=== PATIENT | female | born 1980 | race Caucasian/White ===

== ENCOUNTER 2021-12-06 11:45 | Emergency (ER) | payer BC ==
--- OUTSIDE RECORDS SUMMARY | 2021-12-06 11:49 | XMS REPORT | Continuity of Care Document ---
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 Attending Clinician Payers Payer Name Policy Type Policy Number Effective Date Expiration Date S ource Problems Condition Condition Condition Status Onset Resolution Last Treating Co mments Source Name Details Category Date Date Treatment Clinician Date Keratosis Keratosis Disease Active Uni vers pilaris pilaris 2-28 ity of 00:00: [address] Family Family Disease Active Univers history of history of 2-28 it y of melanoma melanoma 00:00: [address] Anemia Anemia Disease Active 2016-07 Univers 0-05 ity of 00:00: [address] Leukopenia Leukopenia Disease Active U nivers 03-31 ity of 00:00: [address] Microscopi Microscopi Disease Active U nivers c c 03-31 [place] [address] [place] [address] Low serum Low serum Disease Active Uni vers HDL HDL 03-31 ity of 00:00: [address] B12 B12 Disease Active Univers deficiency deficiency 03-31 it y of 00:00: [address] Essential Essential Disease Active Uni vers hypertensi hypertensi 03-30 it y of on on 00:00: [address] PMDD PMDD Disease Active Univers (premenstr (premenstr 03-30 it y of ual ual 00:00: [place] dysphoric dysphoric 00 Medi ara disorder) disorder) Bran ch Eustachian Eustachian Disease Active U nivers tube tube 9-22 ity of dysfunct[place] [facility] Allergies, Adverse Reactions, Alerts Allergy Allergy Status Severity Reaction(s) Onset Inactive Treating Comm ents Source Name Type Date Date Clinician Ciproflo Propensi Active Itching Unive rs xacin ty to 7-12 ity of adverse 00:00: [place] reaction 00 Medical s Branch CIPROFLO DRUG Active ITCHING Univers XACIN INGREDI 7-12 ity of 00:00: [place] 00 Medical Branch Sertrali Propensi Active Swelling 2015-07 Univ ers ne ty to 0-13 ity of adverse 00:00: [place] reaction 00 Medical s Branch SERTRALI DRUG Active Swelling 2015-07 Univer s NE INGREDI 0-13 ity of 00:00: [place] 00 Medical Branch Sulfa Propensi Active Unknown - Unive rs (Sulfona ty to See comments 3-01 it y of mide adverse 00:00: [place] Antibiot reaction 00 Medica l ics) s Branch Hydrocod Propensi Active Unknown - Uni vers one-Acet ty to See comments 3- it y of aminophe adverse 00:00: [place] n reaction 00 Medical s Branch SULFA Drug Active Unknown-Cmnt Univ ers (SULFONA Class 3-01 ity of MIDE 00:00: [place] ANTIBIOT 00 Medical ICS) Branch HYDROCOD DRUG Active Unknown-Cmnt Un dorothy ONE-ACET 3- ity of AMINOPHE 00:00: [place] N 00 Medical Branch Social History Social Habit Start Date Stop Date Quantity Comments Source Sex Assigned At [facility] Medical Branch Alcohol intake 2020-01-18 2020-01-18 [facility] 00:00:00 00:00:00 Medical Branch Alcohol Comment 2015-09-07 2015-09-07 occasional [facility] 00:00:00 00:00:00 Medical Branch Smoking Status Start Date Stop Date Source Never smoker [facility] [place] Medications Ordered Filled Start Stop Current Ordering Indication Dosage Frequency Signature Comments Components Source Medication Medication Date Date Medication? Clinician (SIG) Name Name Nitrofurant 2020- No [id number] 100mg Take 1 Univers oin&Nit. 7-12 07-18 capsule by ity of [place] 00:00: 04:59 mouth 2 Miko as (MACROBID) 00 :00 (two) Medical 100 mg times Branch capsule daily for 5 days. MONTELUKAST 2018- Yes [id number] TAKE 1 Univers 10 mg 0-04 TABLET BY ity of tablet 00:00: MOUTH AT [place] 00 BEDTIME Medical Branch LOSARTAN 25 2018-07 Yes [id number] 25mg TAKE 1 Univers mg tablet 0-04 TABLET BY ity o f 00:00: MOUTH [place] 00 DAILY Medical Branch MONTELUKAST 2018- Yes [id number] TAKE 1 Univers 10 mg 0-04 TABLET BY ity of tablet 00:00: MOUTH AT [place] 00 BEDTIME Medical Branch LOSARTAN 25 2018- Yes [id number] 25mg TAKE 1 Univers mg tablet 0-04 TABLET BY ity o f 00:00: MOUTH [place] 00 DAILY Medical Branch MONTELUKAST 2018- Yes [id number] TAKE 1 Univers 10 mg 0-04 TABLET BY ity of tablet 00:00: MOUTH AT [place] 00 BEDTIME Medical Branch LOSARTAN 25 2018-07 Yes [id number] 25mg TAKE 1 Univers mg tablet 0-04 TABLET BY ity o f 00:00: MOUTH [place] 00 DAILY Medical Branch FLUoxetine 2019-0 Yes [id number] 10mg Take 1 Uni vers 10 mg 9-30 capsule by ity of capsule 00:00: mouth [place] 00 daily. Medical Branch FLUoxetine 2019-0 Yes [id number] 10mg Take 1 Uni vers 10 mg 9-30 capsule by ity of capsule 00:00: mouth [place] 00 daily. Medical Branch FLUoxetine 2019-0 Yes [id number] 10mg Take 1 Uni vers 10 mg 9-30 capsule by ity of capsule 00:00: mouth [place] 00 daily. Medical Branch ammonium 2017-0 Yes [id number] Apply to U nivers lactate 12 2-21 area(s) 2 ity of % cream 00:00: (two) [place] 00 times Medical daily as Branch needed (dry skin). ammonium 2017-0 Yes [id number] Apply to U nivers lactate 12 2-21 area(s) 2 ity of % cream 00:00: (two) [place] 00 times Medical daily as Branch needed (dry skin). ammonium 2018-0 Yes [id number] Apply to U nivers lactate 12 2-21 area(s) 2 ity of % cream 00:00: (two) [place] 00 times Medical daily as Branch needed (dry skin). Immunizations Ordered Filled Immunization Date Status Comments Sourc e Immunization Name Name TD 2017-03-30 Completed University 00:00:00 [facility] TD 2017-03-30 Completed University 00:00:00 [facility] 2017-03-30 Completed University 00:00:00 [facility] Vital Signs Vital Name Observation Time Observation Value Comments Source Systolic blood 2020-01-18 19:41:00 138 mm[Hg] Univer [facility]ity [facility] Diastolic blood 2020-01-18 19:41:00 98 mm[Hg] Unive rsity [facility] Heart rate 2020-01-18 19:41:00 68 /min [facility] Body temperature 2020-01-18 19:41:00 36.83 [facility] Res[facility] rate 2020-01-18 19:41:00 20 /min [facility] Body height 2020-01-18 19:41:00 170.2 cm [facility] Body weight 2020-01-18 19:41:00 66.679 kg [facility] BMI 2020-01-18 19:41:00 23.02 kg/m2 [facility] Oxygen saturation in 2020-01-18 19:41:00 98 /min [facility] Arterial blood by [facility] Pulse oximetry Branch Procedures Procedure Date / Time Performed Performing Clinician Ahmet e POCT URINALYSIS 2020-01-18 00:00:00 Ava Ochoa [place] f [facility] Encounters Start End Encounter Admission Attending Care Care Encounter Source Date/Time Date/Time Type Type Clinicians Facility Department ID 2021-12-12 2021-12-12 Outpatient ASIA, [facility] [id number] Univers 09:00:00 09:00:00 OSMANI [id number] ity of [facility] 2020-01-18 2020-01-21 Laboratory Lab, [facility] [id number] Univers 14:40:00 08:35:29 Only Fam Pob I Health [id number] ity of [place] [id number] Miko as Professio [phone] Ga dical nal [address] [place] [facility] One 2020-01-18 2020-01-18 Urgent Pob1, Acute Care Clinic [facility] [id number] Univers 14:36:28 15:14:[address] [facility] [id number] [facility] [id number] Miko as Professio [phone] Ga dical nal 044 [facility] One 2020-01-18 2020-01-18 Outpatient R [facility] [id number] Univers 14:40:00 14:40:00 [id number] [facility] 2020-01-18 2020-01-18 Outpatient R [facility] [id number] Univers 14:40:00 14:40:00 [facility] 2020-01-18 2020-01-18 [id number] Univers 14:40:00 14:40:00 [facility] Results Test Description Test Time Test Comments Results Result Comments Source POCT URINALYSIS W SPECIFIC GRAVITY 2020-01-18 19:59:00 Test Item Value Reference Range Interpretation Comme nts POCT U SP GRAV (test code = 3255) 1.005 mg/dl 1.005-1.025 POCT PH U (test code = 3254) 5 mg/dl 5-8 POCT U LEUK EST (test code = 3263) + Negative - Negative POCT U NIT (test code = 3262) negative Negative - Negative POCT U PROT (test code = 3259) trace Negative - Negative POCT U GLU (test code = 3256) normal Negative - Negative POCT U KETONE (test code = 3258) negative Negative - Negative POCT U UROBILI (test code = 3260) normal 0.2-1 POCT U BILI (test code = 3261) negative Negative - Negative POCT U BLD (test code = 3257) Negative - Negative POCT U COLOR (test code = 3266) pale yellow POCT U APPEAR (test code = 3267) cloudy [facility]
--- NOTE | 2021-12-06 12:49 | EDPHYS ---
Physician Documentation [facility] Name: Rosette Potter Age: 41 yrs Sex: Female : 1980 Arrival Date: 12/06/2021 Time: 11:49 Bed 4 Private MD: ED Physician Eliot Santos HPI: 12/06 12:48 This 41 yrs old Female presents to ER via EMS with complaints of Syncope. ms3 12:48 The patient has experienced syncope, became unresponsive. Onset: The symptoms/episode ms3 began/occurred just prior to arrival. Duration: This was a single episode. Context: the episode(s) was witnessed, by EMS personnel, by family, son. Associated injury: The patient did not suffer any apparent associated injury. Associated signs and symptoms: The patient has no apparent associated signs or symptoms. Current symptoms: Currently, the patient is not experiencing any symptoms. 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 - Social history:: Smoking status: Patient denies any tobacco usage or history of. ROS: 12:48 Constitutional: Negative for fever, and chills. Neck: Negative for injury, pain, and ms3 swelling, Cardiovascular: Negative for chest pain, and palpitations. Respiratory: Negative for shortness of breath, cough, wheezing, and pleuritic chest pain, Back: Negative for injury and pain, MS/Extremity: Negative for injury and deformity, Skin: Negative for injury, rash, and discoloration. 12:48 Neuro: Positive for syncope. Exam: 12:48 Constitutional: This is a well developed, well nourished patient who is awake, alert, ms3 and in no acute distress. Head/Face: Normocephalic, atraumatic. Neck: Trachea midline, no cervical lymphadenopathy. Supple, full range of motion without nuchal rigidity, or vertebral point tenderness. No Meningismus. Chest/axilla: Normal chest wall appearance and motion. Nontender with no deformity. Cardiovascular: Regular rate and rhythm with a normal S1 and S2. No gallops, murmurs, or rubs. Normal PMI, no JVD. No pulse deficits. Respiratory: Lungs have equal breath sounds bilaterally, clear to auscultation and percussion. No rales, rhonchi or wheezes noted. No increased work of breathing, no retractions or nasal flaring. Abdomen/GI: Soft, non-tender, with normal bowel sounds. No distension or tympany. No guarding or rebound. No evidence of tenderness throughout. Skin: Warm, dry with normal turgor. Normal color with no rashes, no lesions, and no evidence of cellulitis. MS/ Extremity: Pulses equal, no cyanosis. Neurovascular intact. Full, normal range of motion. Neuro: Awake and alert, GCS 15, oriented to person, place, time, and situation. Cranial nerves II-XII grossly intact. Motor strength 5/5 in all extremities. Sensory grossly intact. Cerebellar exam normal. Normal gait. Psych: Awake, alert, with orientation to person, place and time. Behavior, mood, and affect are within normal limits. Vital Signs: 11:54 BP 146 / 87; Pulse 84; Resp 16; Temp 97.6(TE); Pulse Ox 98% on R/A; Weight 58.97 kg; kj1 Height 5 ft. 7 in. (170.18 cm); Pain 0/10; 11:54 Body Mass Index 20.36 (58.97 kg, 170.18 cm) kj1 MDM: 11:52 Patient medically screened. ms3 12:48 Differential Diagnosis: cardiac arrhythmia, seizure, vasovagal episode. Data reviewed: ms3 vital signs, nurses notes. Counseling: I had a detailed discussion with the patient and/or guardian regarding: the historical points, exam findings, and any diagnostic results supporting the discharge/admit diagnosis, the need for outpatient follow up, to return to the emergency department if symptoms worsen or persist or if there are any questions or concerns that arise at home. ED course: Discussed obtaining labs, x-ray, ekg with patient. Patient declines. Patient states she passed out after seeing her son pass out and the EMS crew taking him out. Discussed PE findings with patient. Patient to follow up with PMD in 2-3 days. Patient understands/ agrees with plan. All questions answered. Return precautions given to include worsening symptoms, or any other concerns. Patient is improved, in NAD, non-toxic appearing, ambulatory in ED, speaking full sentences.. 12/06 11:53 Order name: IV Saline Lock; Complete Time: 12:31 ms3 Administered Medications: No medications were administered Disposition Summary: 12/06/21 12:48 Discharge Ordered Location: Home ms3 Condition: Stable ms3 Diagnosis - syncope ms3 Followup: ms3 - With: Private Physician - When: 2 - 3 days - Reason: Re-evaluation by your physician Discharge Instructions: - Discharge Summary Sheet ms3 - Syncope ms3 - Syncope, [id number] ms3 Forms: - Medication Reconciliation Form ms3 - Thank You Letter ms3 - Antibiotic Education ms3 - Prescription Opioid Use ms3 Signatures: Dispatcher [employer] EDMS Shahida Cruz, RN RN iw Yana Mack RN RN ap3 Eliot Santos, DO ms3 Corrections: (The following items were deleted from the chart) 12:40 11:54 Chest Single View+RAD.RAD.BRZ ordered. EDMS EDMS 12:45 11:53 Cardiac monitoring ordered. ms3 ms3 12:45 11:53 EKG - Nurse/Tech ordered. ms3 ms3 12:45 11:53 Labs collected and sent ordered. ms3 ms3 12:45 11:53 Urine Test ordered. ms3 ms3 12:46 11:53 Oxygen Per Protocol ordered. ms3 ms3 12:46 11:53 O2 Sat Monitoring ordered. ms3 ms3
--- NOTE | 2021-12-06 12:49 | ER ---
Nurse's Notes [facility] Name: Rosette Potter Age: 41 yrs Sex: Female : 1980 Arrival Date: 12/06/2021 Time: 11:49 Bed 4 Private MD: Diagnosis: syncope Presentation: 12/06 11:50 Chief complaint: EMS states: suddenly passed out, eyes rolled to side BP was low 80/60 iw , lasted a few seconds, woke up diaphoretic , now A\T\OX3. Coronavirus screen: At this time, the client does not indicate any symptoms associated with coronavirus-19. Ebola Screen: Patient negative for fever greater than or equal to 101.5 degrees Fahrenheit, and additional compatible Ebola Virus Disease symptoms Patient denies exposure to infectious person. Patient denies travel to an Ebola-affected area in the 21 days before illness onset. No symptoms or risks identified at this time. Risk Assessment: Do you want to hurt yourself or someone else? Patient reports no desire to harm self or others. Onset of symptoms was December 06, 2021. 11:50 Method Of Arrival: EMS: [facility] iw 11:50 Acuity: PAIGE 3 iw 12:54 Initial Sepsis Screen: Does the patient meet any 2 criteria? No. Patient's initial ap3 sepsis screen is negative. Does the patient have a suspected source of infection? No. Patient's initial sepsis screen is negative. Triage Assessment: 12:47 General: Appears in no apparent distress. comfortable, Behavior is calm, cooperative, ap3 appropriate for age. Pain: Denies pain. 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 - Social history:: Smoking status: Patient denies any tobacco usage or history of. Screenin:47 Abuse screen: Denies threats or abuse. Nutritional screening: No deficits noted. ap3 Tuberculosis screening: No symptoms or risk factors identified. Fall Risk Fall in past 12 months (25 points). Secondary diagnosis (15 points) IV access (20 points). Ambulatory Aid- None/Bed Rest/Nurse Assist (0 pts). Gait- Normal/Bed Rest/Wheelchair (0 pts) Mental Status- Oriented to own ability (0 pts). Total Begum Fall Scale indicates High Risk Score (45 or more points). Fall prevention measures have been instituted. Side Rails Up X 2 Placed Close to Nursing Station Frequent Obs/Assessments Occuring As available patient and family educated on Fall Prevention Program and Strategies. Vital Signs: 11:54 BP 146 / 87; Pulse 84; Resp 16; Temp 97.6(TE); Pulse Ox 98% on R/A; Weight 58.97 kg; kj1 Height 5 ft. 7 in. (170.18 cm); Pain 0/10; 11:54 Body Mass Index 20.36 (58.97 kg, 170.18 cm) kj1 ED Course: 11:49 Patient arrived in ED. iw 11:52 Eliot Santos DO is Attending Physician. ms3 11:58 Triage completed. iw 12:53 Arm band placed on right wrist. ap3 12:53 Patient has correct armband on for positive identification. Bed in low position. Call ap3 light in reach. Adult w/ patient. Pulse ox on. NIBP on. Door closed. Noise minimized. 13:04 No provider procedures requiring assistance completed. IV discontinued, intact, ap3 bleeding controlled, No redness/swelling at site. Pressure dressing applied. Administered Medications: No medications were administered Medication: 12:54 VIS not applicable for this client. ap3 Outcome: 12:48 Discharge ordered by MD. ms3 13:04 Discharged to home ambulatory, with family. ap3 13:04 Condition: good 13:04 Discharge instructions given to patient, Instructed on discharge instructions, follow up and referral plans. Demonstrated understanding of instructions, follow-up care. 13:04 Patient left the ED. ap3 Signatures: Shahida Cruz, RN RN iw Yana Mack RN RN ap3 Natali Martin kj1 Eliot Santos DO DO ms3 Corrections: (The following items were deleted from the chart) 11:57 11:54 BP 146 / 87; Pulse 84bpm; Resp 16bpm; Pulse Ox 98% RA; 58.97 kg; Height 5 ft. 7 kj1 in.; BMI: 20.3; Pain 0/10; kj1
[2021-12-06 13:08] VITALS: BP 146/87; TEMP 97.6; O2SAT 98
== END 2021-12-06 13:04 | disposition home or self-care (01) ==
LOC: ER 11:45
DX: R55 Syncope and collapse (principal); Z88.5 Allergy status to narcotic agent
CPT/HCPCS: 99283

== ENCOUNTER 2024-02-09 15:16 | Emergency (ER) | payer MEDICARE ==
[2024-02-09] MEDS ORDERED: NA CHLORIDE 0.9% 1,000 ML ONE (15:51)
[2024-02-09] MEDS ORDERED: ONDANSETRON 4 MG/2 ML VIAL ONE (15:51)
--- NOTE | 2024-02-09 16:17 | RAD REPORT ---
EXAM DESCRIPTION: RAD - Chest Single View - 02/09/2024 4:00 pm CLINICAL HISTORY: COUGH Chest pain. COMPARISON: <Comparisons> FINDINGS: Portable technique limits examination quality. The lungs are grossly clear. The heart is normal in size. No displaced fractures. IMPRESSION: No acute intrathoracic process suspected.
[2024-02-09 16:22] LABS: Absolute Lymphocytes (CBC) 0.2 K/uL (0.7-4.9); Absolute Monocytes 0.2 K/uL (0.1-1.3); Absolute Neutrophil 2.9 K/uL (1.8-8.0); Basophils % 0.2 % (0-1.3); Hematocrit 30.5 % (36.0-45.0); Hemoglobin 10.3 g/dL (12.0-15.0); Lymphocytes % 7.2 % (15.3-44.8); MCH 26.1 pg (27.0-35.0); MCHC 33.8 g/dL (32.0-36.0); MCV 77.2 fL (80-100); MPV 8.7 fL (7.6-11.3); Neutrophils % 87.6 % (41.7-73.7); Nucleated Red Blood Cells % 0.2 % (0-0); Platelets 93 thou/uL (152-406); RBC Red Blood Cell Count 3.95 M/uL (3.86-4.86); Red Cell Distribution Width 15.6 % (12.1-15.2)
[2024-02-09 16:30] LABS: SARS-CoV-2 Antigen CONTROL BLUE LINE VIS/BG OK; SARS-CoV-2 Antigen Rapid Res Negative (Negative)
[2024-02-09 16:51] LABS: Specific Gravity < 1.005 (1.005-1.030); Sqamous Epithelial <5 /HPF (None Seen); Urine Bacteria <20 /HPF (<20); Urine Bilirubin NEGATIVE (Negative); Urine Blood Negative (Negative); Urine Clarity Turbid (Clear); Urine Color Colorless (Yellow); Urine Crystals Unidentified Few /HPF (None Seen); Urine Culture Reflex Order NOT NEEDED; Urine Glucose NEGATIVE (Negative); Urine Ketones NEGATIVE (Negative); Urine Microscopic Reflex YN ORDER UMIC; Urine Nitrite NEGATIVE (Negative); Urine Protein NEGATIVE (Negative); Urine RBC <5 /HPF (None Seen); Urine Urobilinogen Normal (Normal); Urine WBC <5 /HPF (<5); Urine pH 6.5 (5.0-7.0)
[2024-02-09 17:02] LABS: Band Neutrophils 13 % (0-1); Differential Total Cells Count 100; Lymphocytes 15 % (15-42); Monocytes 3 % (0-10); Nucleated Red Blood Cells 1 /100WBC; Segmented Neutrophils 69 % (40-80)
[2024-02-09 17:03] LABS: Blood Morphology Comment NOT SEEN (NOT SEEN); Platelet Estimate DECR
--- NOTE | 2024-02-09 17:04 | ER ---
Nurse's Notes [facility] Name: Rosette Potter Age: 43 yrs Sex: Female : 1980 Arrival Date: 02/09/2024 Time: 15:16 Bed 9 Private MD: Diagnosis: Fever, unspecified Presentation: 02/08 15:24 Chief complaint: Patient states: Fever, headaches for about a week, no appetite, aa5 concerned she is dehydrated. Had 800mg ibuprofen at 1:30pm. Coronavirus screen: Vaccine status: Patient reports being unvaccinated. Ebola Screen: Patient denies travel to an Ebola-affected area in the 21 days before illness onset. Initial Sepsis Screen: Does the patient meet any 2 criteria? HR > 90 bpm. No. Patient's initial sepsis screen is negative. Does the patient have a suspected source of infection? No. Patient's initial sepsis screen is negative. Risk Assessment: Do you want to hurt yourself or someone else? Patient reports no desire to harm self or others. Onset of symptoms was January 2024. 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 - Infectious Disease History:: Denies. - Social history:: Smoking status: Patient denies any tobacco usage or history of. Screenin:29 [facility] ED Fall Risk Assessment (Adult) History of falling in the last 3 months, kj2 including since admission No falls in past 3 months (0 pts) Confusion or Disorientation No (0 pts) Intoxicated or Sedated No (0 pts) Impaired Gait No (0 pts) Mobility Assist Device Used No (0 pt) Altered Elimination No (0 pt) Score/Fall Risk Level 0 - 2 = Low Risk Maintained a safe environment, Hourly rounding (assess needs \T\ fall precautionary measures) done. Abuse screen: Denies threats or abuse. Denies injuries from another. Nutritional screening: No deficits noted. Tuberculosis screening: No symptoms or risk factors identified. Assessment: 16:26 General: Appears in no apparent distress. Behavior is calm, cooperative. Pain: kj2 Complains of pain in headache Pain currently is 4 out of 10 on a pain scale. Neuro: Level of Consciousness is awake, alert, Oriented to person, place, time, situation. Cardiovascular: Patient's skin is warm and dry. Respiratory: Airway is patent Respiratory effort is even, unlabored. GI: No deficits noted. Vital Signs: 15:24 BP 137 / 84; Pulse 94; Resp 16; Temp 98.4; Pulse Ox 97% on R/A; Weight 61.23 kg; Height aa5 5 ft. 6 in. ; Pain 3/10; 16:23 BP 126 / 92; Pulse 81; Resp 18; Pulse Ox 98% on R/A; kj2 17:45 BP 110 / 79; Pulse 70; Resp 18; Temp 98; Pulse Ox 100% on R/A; kj2 15:24 Body Mass Index 21.79 (61.23 kg, 167.64 cm) aa5 15:24 Pain Scale: Adult aa5 ED Course: 15:18 Patient arrived in ED. im 15:23 [facility] 15:23 Luisito Mathews MD is Attending Physician. 7 15:27 Triage completed. aa5 15:27 Arm band placed on left wrist. aa5 15:45 Rena Nayak, NAYAN is Primary Nurse. kj2 16:02 XRAY Chest (1 view) In Process Unspecified. EDMS 16:25 Patient has correct armband on for positive identification. Bed in low position. Call kj2 light in reach. Adult w/ patient. Provided Education on: call light, fall precautions. 16:28 No provider procedures requiring assistance completed. Inserted saline lock: 20 gauge kj2 in left antecubital area, using aseptic technique. Blood collected. Flushed with 10 mL NS. 17:33 IV discontinued, intact, bleeding controlled, No redness/swelling at site. Pressure kj2 dressing applied. Administered Medications: 16:20 Drug: NS 0.9% IV 1000 ml IV at 1 bolus Per protocol; 1000 mL bolus Route: IV; Rate: 1 kj2 bolus; Site: left antecubital; 17:32 Follow up: IV Status: Completed infusion; IV Intake: 1000ml kj2 16:27 Drug: Ondansetron IVP 4 mg IVP once; over 2 minutes Route: IVP; Site: left antecubital; kj2 17:32 Follow up: Response: No adverse reaction kj2 17:39 Drug: Potassium Chloride PO 40 mEq PO once Route: PO; kj2 17:44 Follow up: Response: No adverse reaction kj2 Medication: 16:30 VIS not applicable for this client. kj2 Intake: 17:32 IV: 1000ml; Total: 1000ml. kj2 Outcome: 17:03 Discharge ordered by . jhAbdullahi 17:33 Discharged to home ambulatory, with family, kj2 17:33 Condition: stable 17:33 Discharge instructions given to patient, Instructed on discharge instructions, follow up and referral plans. Demonstrated understanding of instructions, follow-up care, 17:46 Patient left the ED. kj2 Signatures: Dispatcher [employer] Victorina Watkins, RN RN aa5 Sonja Larios, SENIOR MECHANICAL ENGINEER SENIOR MECHANICAL ENGINEER 7 Joelle Herrera Krystal RN RN kj2
--- NOTE | 2024-02-09 17:04 | EDPHYS ---
Physician Documentation [facility] Name: Rosette Potter Age: 43 yrs Sex: Female : 1980 Arrival Date: 02/09/2024 Time: 15:16 Bed 9 Private MD: ED Physician Luisito Mathews HPI: 02/08 15:24 This 43 yrs old Female presents to ER via Ambulatory with complaints of Flu Symptoms. [facility] 15:24 43-year-old female with a past medical history of tubal ligation presents to the ER for [facility] flulike symptoms x 1 week. The patient reports fever, headache, and decreased appetite for 1 week. She states that she started coughing yesterday. Denies any neck pain/stiffness, nausea, vomiting, or diarrhea.. 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 - Infectious Disease History:: Denies. - Social history:: Smoking status: Patient denies any tobacco usage or history of. ROS: 15:24 Constitutional: Per HPI 7 Exam: 15:24 Constitutional: This is a well developed, well nourished patient who is awake, alert, jh7 and in no acute distress. Head/Face: Normocephalic, atraumatic. Eyes: Pupils equal round and reactive to light, extra-ocular motions intact. Lids and lashes normal. Conjunctiva and sclera are non-icteric and not injected. Cornea within normal limits. Periorbital areas with no swelling, redness, or edema. Neck: Trachea midline, no thyromegaly or masses palpated, and no cervical lymphadenopathy. Supple, full range of motion without nuchal rigidity, or vertebral point tenderness. No Meningismus. Cardiovascular: Regular rate and rhythm with a normal S1 and S2. No gallops, murmurs, or rubs. Normal PMI, no JVD. No pulse deficits. Respiratory: Lungs have equal breath sounds bilaterally, clear to auscultation and percussion. No rales, rhonchi or wheezes noted. No increased work of breathing, no retractions or nasal flaring. Abdomen/GI: Soft, non-tender, with normal bowel sounds. No distension or tympany. No guarding or rebound. No evidence of tenderness throughout. Back: No spinal tenderness. No costovertebral tenderness. Full range of motion. Skin: Warm, dry with normal turgor. Normal color with no rashes, no lesions, and no evidence of cellulitis. MS/ Extremity: Pulses equal, no cyanosis. Neurovascular intact. Full, normal range of motion. Neuro: Awake and alert, GCS 15, oriented to person, place, time, and situation. Motor strength 5/5 in all extremities. Sensory grossly intact. Normal gait. 15:24 ENT: Posterior pharynx: pooling of secretions, that are mild, Vital Signs: 15:24 BP 137 / 84; Pulse 94; Resp 16; Temp 98.4; Pulse Ox 97% on R/A; Weight 61.23 kg; Height aa5 5 ft. 6 in. ; Pain 3/10; 16:23 BP 126 / 92; Pulse 81; Resp 18; Pulse Ox 98% on R/A; kj2 17:45 BP 110 / 79; Pulse 70; Resp 18; Temp 98; Pulse Ox 100% on R/A; kj2 15:24 Body Mass Index 21.79 (61.23 kg, 167.64 cm) aa5 15:24 Pain Scale: Adult aa5 MDM: 15:23 Patient medically screened. [facility] 17:10 Differential diagnosis: viral Infection, bacterial infection, URI, bronchitis, [facility] pneumonia URI, COVID, influenza. Data reviewed: vital signs, nurses notes, lab test result(s), radiologic studies, plain films. I considered the following discharge prescriptions or medication management in the emergency department Medications were administered in the Emergency Department. See MAR. Independent interpretation of the following test(s) in the Emergency Department X-Ray: My interpretation is No acute findings. Counseling: I had a detailed discussion with the patient and/or guardian regarding the historical points, exam findings, and any diagnostic results supporting the discharge/admit diagnosis, to return to the emergency department if symptoms worsen or persist or if there are any questions or concerns that arise at home. Response to treatment: the patient's symptoms have mildly improved after treatment. ED course: The patient remained hemodynamically stable throughout her ER stay. Informed her that there were no acute findings on her labs or imaging. The patient denied any headache, photophobia, nuchal rigidity, nausea/vomiting, or any other symptoms. The fever is likely viral and the patient was advised to take Tylenol/ibuprofen as needed for symptom relief. If she develops any new concerning symptoms, she was advised to return to the ER for further eval.. 02/08 15:33 Order name: BMP; Complete Time: 16:54 [facility] 02/08 15:33 Order name: CBC with Diff; Complete Time: 17:04 [facility] 02/08 15:33 Order name: Flu; Complete Time: 16:54 [facility] 02/08 15:33 Order name: SARS RAPID; Complete Time: 16:54 [facility] 02/08 15:33 Order name: Urinalysis w/ reflexes; Complete Time: 16:54 [facility] 02/08 16:59 Order name: Manual Differential; Complete Time: 17:04 EDMS 02/08 15:38 Order name: XRAY Chest (1 view); Complete Time: 16:20 jh7 Administered Medications: 16:20 Drug: NS 0.9% IV 1000 ml IV at 1 bolus Per protocol; 1000 mL bolus Route: IV; Rate: 1 kj2 bolus; Site: left antecubital; 17:32 Follow up: IV Status: Completed infusion; IV Intake: 1000ml kj2 16:27 Drug: Ondansetron IVP 4 mg IVP once; over 2 minutes Route: IVP; Site: left antecubital; kj2 17:32 Follow up: Response: No adverse reaction kj2 17:39 Drug: Potassium Chloride PO 40 mEq PO once Route: PO; kj2 17:44 Follow up: Response: No adverse reaction kj2 Disposition: 20:08 Co-signature as Attending Physician, Luisito Mathews MD I reviewed the patient's care rt provided by the Advanced Practice Provider and agree with the diagnosis and treatment plan. Disposition Summary: 02/09/24 17:03 Discharge Ordered Notes: Location: Home [facility] Problem: new jh7 Symptoms: have improved jh7 Condition: Stable jh7 Diagnosis - Fever, unspecified jh7 Followup: [facility] - With: Private Physician - When: 2 - 3 days - Reason: Recheck today's complaints Discharge Instructions: - Discharge Summary Sheet jh7 - Fever, Adult jh7 Forms: - Medication Reconciliation Form 7 - Patient Portal Instructions [facility] - Leadership Thank You Letter [facility] Signatures: Dispatcher [employer] EDVictorina Dykes, RN RN aa5 Sonja Larios, HOLD WORKER HOLD WORKER 7 Luisito Mathews MD MD rt Rena Nayak RN RN kj2 Corrections: (The following items were deleted from the chart) 16:59 16:28 CBC Smear Scan ordered. EDMS EDMS
[2024-02-09] MEDS ORDERED: POTASSIUM CL SA 10 MEQ TAB PO ONE (17:38)
[2024-02-09 20:17] VITALS: BP 110/79; TEMP 98; O2SAT 100
== END 2024-02-09 17:46 | disposition home or self-care (01) ==
LOC: ER 15:16
DX: R50.9 Fever, unspecified (principal); Z11.52 Encounter for screening for COVID-19
CPT/HCPCS: 36415; 71045; 80048; 81001; 85025; 87804; 87811; 96361; 96374; 99284; J2405; J7030